=== PATIENT | female | born 1990 | race Caucasian/White ===

== ENCOUNTER → 2018-08-28 | Outpatient (REF) | payer OTHER ==
[2018-08-28 19:14] LABS: HEMATOCRIT 30.1 % (36.0-47.0); HEMOGLOBIN 8.8 g/dl (12.0-15.5); MEAN CORPUSCULAR HEMOGLOBIN 20.2 pg (27.0-33.0); MEAN CORPUSCULAR HGB CONC 29.2 g/dl (32.0-36.5); PLATELET COUNT, AUTOMATED 476 10^3/uL (150-450); RED BLOOD COUNT 4.36 10^6/uL (4.00-5.40); WHITE BLOOD COUNT 9.6 10^3/uL (4.0-10.0)
[2018-08-28 19:19] LABS: ALBUMIN 3.4 GM/DL (3.2-5.2); ALT/SGPT 23 U/L (12-78); BILIRUBIN,TOTAL 0.2 MG/DL (0.2-1.0); BLOOD UREA NITROGEN 8 MG/DL (7-18); CALCIUM LEVEL 8.9 MG/DL (8.5-10.1); CARBON DIOXIDE LEVEL 23 MEQ/L (21-32); CHLORIDE LEVEL 107 MEQ/L (98-107); CREATININE FOR GFR 0.54 MG/DL (0.55-1.30); GLOMERULAR FILTRATION RATE > 60.0 (>60); GLUCOSE, FASTING 71 MG/DL (70-100); POTASSIUM SERUM 4.2 MEQ/L (3.5-5.1); SODIUM LEVEL 138 MEQ/L (136-145); TOTAL PROTEIN 7.4 GM/DL (6.4-8.2)
[2018-09-02 14:57] LABS: FERRITIN 3 NG/ML (8-252); IRON (FE) 27 UG/DL (50-170); PERCENT SATURATION 4.6 % (13.2-45.0); TOTAL IRON BINDING CAPACITY 586 UG/DL (250-450)
== END ==
LOC: M SFHCPLAZ 15:18
PROVIDERS: ATTEND Nurse Practitioner Family
DX: Z32.01 Encounter for pregnancy test, result positive (principal)
CPT/HCPCS: 36415; 80053; 82728; 83550; 84439; 84443; 84702; 85027; G0463

== ENCOUNTER → 2018-09-20 | Outpatient (CLI) | payer OTHER ==
[~2018-09-20] MED LIST: PRENTAB9 PO
[2018-09-20 17:19] LABS: BASO % 0.5 % (0.0-1.0); EOS # 0.2 10^3/uL (0.0-0.50); EOS % 2.4 % (0.0-3.0); HEMOGLOBIN 8.8 g/dl (12.0-15.5); LYMPH # 1.9 10^3/uL (1.5-6.5); LYMPH % 22.4 % (24.0-44.0); MEAN CORPUSCULAR HEMOGLOBIN 19.4 pg (27.0-33.0); MEAN CORPUSCULAR HGB CONC 28.4 g/dl (32.0-36.5); MEAN CORPUSCULAR VOLUME 68.3 fl (80.0-96.0); MONO # 0.6 10^3/uL (0.0-0.8); MONO % 6.7 % (0.0-5.0); NEUTROPHILS # 5.7 10^3/uL (1.8-7.7); NEUTROPHILS % 67.8 % (36.0-66.0); PLATELET COUNT, AUTOMATED 444 10^3/uL (150-450); RED BLOOD COUNT 4.54 10^6/uL (4.00-5.40); WHITE BLOOD COUNT 8.4 10^3/uL (4.0-10.0)
[2018-09-23 11:12] LABS: HEPATITIS C VIRUS ABY INDEX 0.1 INDEX (<0.8); HIV 1&2 SCREEN CENTAUR NEGATIVE (NEGATIVE); RUBELLA IgG QUALITATIVE IMMUNE (IMMUNE)
== END ==
LOC: M LRY 10:38
PROVIDERS: ATTEND Advanced Practice Midwife
DX: Z3A.09 9 weeks gestation of pregnancy (principal)

== ENCOUNTER → 2018-09-26 | Outpatient (REF) | payer OTHER ==
[2018-09-26 20:22] LABS: CHLAMYDIA DNA AMPLIFICATION NEGATIVE (NEGATIVE); GC DNA AMPLIFICATION NEGATIVE (NEGATIVE)
== END ==
LOC: M LAB REF 17:25
PROVIDERS: ATTEND Advanced Practice Midwife
DX: Z34.82 Encounter for supervision of other normal pregnancy, second trimester (principal)

== ENCOUNTER → 2018-10-29 | Outpatient (REF) | payer OTHER | LOC: M LAB REF 12:46 | PROVIDERS: ATTEND Specialist | DX: Z34.82 Encounter for supervision of other normal pregnancy, second trimester (principal); Z3A.00 Weeks of gestation of pregnancy not specified ==

== ENCOUNTER → 2018-10-30 | Outpatient (CLI) | payer OTHER ==
--- NOTE | 2018-10-31 03:05 | REP ---
Clinical: Anatomical evaluation. Comparison: None . Findings: Examination demonstrates a single live intrauterine in breech presentation. motion is identified by technologist. Placenta is noted anterior and grade zero without evidence for placenta previa or abruption. Amniotic fluid volume is normal. Cervix measures no 3.1 cm in length and appears closed. No evidence for nuchal cord. Gestational age by current measurements 18 weeks 0 days with JABIER 04/02/2019 . FHR equals 144 beats per minute. BPD 4.2 cm 18 weeks 5 days HC 14.5 cm 17 weeks 5 days AC 12.8 cm 18 weeks 2 days FL 2.6 cm 18 weeks 0 days HL 2.5 cm 17 weeks 5 days HC/AC ratio 1.13 Estimated weight 226 grams ( 50th percentile). Anatomical assessment demonstrates normal structures including cranium, choroid plexus, cavum, cerebellum/posterior fossa, facial features, lungs, diaphragm, stomach, cord insertion/three-vessel cord, kidneys/bladder, spine, and extremities. Impression: Single live intrauterine in breech presentation demonstrating appropriate weight . Limited evaluation of the heart/ventricular outflow tracts may warrant reevaluation and follow-up. Electronically Signed by Scooby Robbins MD 10/31/2018 02:56 A
== END ==
LOC: M RAD 10:23
PROVIDERS: ATTEND Specialist
DX: Z34.82 Encounter for supervision of other normal pregnancy, second trimester (principal); Z3A.00 Weeks of gestation of pregnancy not specified

== ENCOUNTER → 2018-11-26 | Outpatient (REF) | payer OTHER | LOC: M LAB REF 13:12 | PROVIDERS: ATTEND Advanced Practice Midwife | DX: O99.012 Anemia complicating pregnancy, second trimester (principal); Z3A.00 Weeks of gestation of pregnancy not specified ==

== ENCOUNTER → 2018-11-28 | Outpatient (CLI) | payer OTHER ==
--- NOTE | 2018-11-29 04:32 | REP ---
Clinical: Anatomical evaluation. Comparison: 10/30/2018 . Findings: Examination demonstrates a single live intrauterine in breech presentation. motion is identified by technologist. Placenta is noted anterior and grade zero without evidence for placenta previa or abruption. Amniotic fluid volume is normal. Cervix measures 4.0 cm in length and appears closed. No evidence for nuchal cord. Gestational age by LMP 22 weeks 1 day with JABIER 09[birth year]14[birth year]1919 . Gestational age by current measurements 22 weeks 4 days with JABIER 03/30/2019 . FHR equals 147 beats per minute. Estimated weight 508 grams ( 55th percentile). Anatomical assessment demonstrates normal structures including cranium, choroid plexus, cavum, cerebellum/posterior fossa, lungs, diaphragm, stomach, cord insertion/three-vessel cord, bladder, spine, and extremities. Impression: Single live intrauterine in breech presentation demonstrating appropriate interval growth. Limited evaluation of the heart again noted. Remainder of the anatomical assessment is within normal limits. Electronically Signed by Scooby Robbins MD 11/29/2018 04:24 A
== END ==
LOC: M RAD 16:47
PROVIDERS: ATTEND Advanced Practice Midwife
DX: O99.012 Anemia complicating pregnancy, second trimester (principal); D64.9 Anemia, unspecified; Z3A.22 22 weeks gestation of pregnancy; O32.1XX0 Maternal care for breech presentation, not applicable or unspecified

== ENCOUNTER 2018-12-20 15:40 | Outpatient (CLI) | payer OTHER ==
[~2018-12-20] VITALS: Ht 154.9 cm; Wt 64.0 kg
[2018-12-20 16:03] VITALS: BP 132/77
[2018-12-20] MEDS ORDERED: PRENTAB9 PO (16:07)
[2018-12-20 17:15] VITALS: BP 126/73
--- NOTE | 2018-12-20 17:24 | IPNPDOC ---
Text Note Date of Service The patient was seen on 12/20/18. NOTE Outpatient 28yo G1 JABIER 03/29/2019. Presents @ 25w1d with complaints of general malaise, sore throat and decreased FM over the past 2 days. Denies LOF or bleeding. VSS, afebrile, normotensive NST reassuring for gestation Discussed anterior placental relation to perception of movement Enc regular small protein rich meals/snacks and increased fluids. If not feeling better this weekend, go to urgent care or primary. Keep next appt VS,Fishbone, I+O VS, Fishbone, I+O Vital Signs Date Time Temp Pulse Resp B/P (MAP) Pulse Ox O2 Delivery O2 Flow Rate FiO2 12/20/18 16:03 114 18 132/77 (95) Susanna Powell CNM Dec 20, 2018 17:24
== END 2018-12-20 17:30 | disposition home or self-care (01) ==
LOC: M LDO 15:40
PROVIDERS: ATTEND Advanced Practice Midwife
DX: O36.8120 Decreased fetal movements, second trimester, not applicable or unspecified (principal); Z3A.25 25 weeks gestation of pregnancy
CPT/HCPCS: G0378; G0463

== ENCOUNTER → 2018-12-31 | Outpatient (CLI) | payer OTHER ==
--- NOTE | 2018-12-31 12:02 | REP ---
OB ULTRASOUND: Real-time sonographic evaluation of gravid uterus performed. There is a single living intrauterine gestation. The estimated gestational age is 26 weeks 6 days. EDC 04/02/2019. Today's measurements indicate appropriate growth. BPD 70 mm = 28 weeks 1 day, 76th percentile HC 253 mm = 27 weeks 3 days, 62nd percentile AC 217 mm = 26 weeks 1 day, 35th percentile Femur length 49 mm = 26 weeks 2 days, 37th percentile HC/AC ratio 1.16, within normal range. Estimated weight 940 grams, 32nd percentile. Cervix is closed and measures 3.2 cm in length. heart rate 150 beats per minute. SEEN/GROSSLY UNREMARKABLE Lateral ventricles Yes Posterior fossa No (previously seen) Upper lip Yes Four-chamber heart Yes LVOT Yes RVOT Yes Stomach Yes Cord insertion No (previously seen) Three vessel cord Yes Kidneys Yes Bladder Yes Spine No (previously seen) position: Vertex. Placenta: Anterior and grade 0 with no previa or abruption. Amniotic fluid: Within normal limits. Electronically Signed by Luther Almanza MD 01/01/2019 10:31 A
== END ==
LOC: M RAD 10:47
PROVIDERS: ATTEND Advanced Practice Midwife
DX: Z34.82 Encounter for supervision of other normal pregnancy, second trimester (principal); Z3A.26 26 weeks gestation of pregnancy

== ENCOUNTER → 2019-01-31 | Outpatient (CLI) | payer OTHER ==
[2019-01-31 14:18] LABS: HEMATOCRIT 28.3 % (36.0-47.0); HEMOGLOBIN 7.6 g/dl (12.0-15.5); MEAN CORPUSCULAR HEMOGLOBIN 19.2 pg (27.0-33.0); MEAN CORPUSCULAR HGB CONC 26.9 g/dl (32.0-36.5); MEAN CORPUSCULAR VOLUME 71.5 fl (80.0-96.0); PLATELET COUNT, AUTOMATED 394 10^3/uL (150-450); RED BLOOD COUNT 3.96 10^6/uL (4.00-5.40); WHITE BLOOD COUNT 9.8 10^3/uL (4.0-10.0)
== END ==
LOC: M PLALAB 08:56
PROVIDERS: ATTEND Advanced Practice Midwife
DX: Z34.03 Encounter for supervision of normal first pregnancy, third trimester (principal)

== ENCOUNTER → 2019-02-10 | Outpatient (CLI) | payer OTHER ==
[2019-02-10 19:10] LABS: ALBUMIN 2.6 GM/DL (3.2-5.2); ALT/SGPT 16 U/L (12-78); BILIRUBIN,TOTAL 0.5 MG/DL (0.2-1.0); BLOOD UREA NITROGEN 7 MG/DL (7-18); CALCIUM LEVEL 8.7 MG/DL (8.5-10.1); CARBON DIOXIDE LEVEL 21 MEQ/L (21-32); CHLORIDE LEVEL 107 MEQ/L (98-107); CREATININE FOR GFR 0.56 MG/DL (0.55-1.30); FERRITIN 5 NG/ML (8-252); GLOMERULAR FILTRATION RATE > 60.0 (>60); GLUCOSE, FASTING 68 MG/DL (70-100); IRON (FE) 17 UG/DL (50-170); PERCENT SATURATION 1.9 % (13.2-45.0); POTASSIUM SERUM 3.4 MEQ/L (3.5-5.1); SODIUM LEVEL 139 MEQ/L (136-145); TOTAL IRON BINDING CAPACITY 903 UG/DL (250-450); TOTAL PROTEIN 6.8 GM/DL (6.4-8.2)
[2019-02-14 14:07] LABS: HEMOGLOBIN A 98.1 % (96.4-98.8); HEMOGLOBIN A2 1.9 % (1.8-3.2); HGB SOLUBILITY Negative (Negative); TRANSFERRIN 716 mg/dL (200-370)
== END ==
LOC: M PLALAB 13:08
PROVIDERS: ATTEND Advanced Practice Midwife
DX: O99.013 Anemia complicating pregnancy, third trimester (principal)

== ENCOUNTER 2019-02-20 10:22 | Outpatient (CLI) | payer OTHER ==
[~2019-02-20] VITALS: Ht 154.9 cm; Wt 65.5 kg
[2019-02-20] VITALS (7 sets, daily range): BP systolic 111–132; BP diastolic 57–76
[2019-02-20] MEDS ORDERED: IRON SUCROSE 500 MG in NS 250 ML OVER 4 HRS IV ONE (11:00)
== END 2019-02-20 16:20 | disposition home or self-care (01) ==
LOC: M INFU 10:22
PROVIDERS: ATTEND Advanced Practice Midwife
DX: D64.9 Anemia, unspecified (principal); Z88.0 Allergy status to penicillin
CPT/HCPCS: 96365; 96366; J1756

== ENCOUNTER → 2019-03-07 | Outpatient (REF) | payer OTHER | LOC: M SFHCWAGY 12:51 | PROVIDERS: ATTEND Advanced Practice Midwife | DX: Z36.85 Encounter for antenatal screening for Streptococcus B (principal); O99.013 Anemia complicating pregnancy, third trimester; Z3A.00 Weeks of gestation of pregnancy not specified ==

== ENCOUNTER → 2019-03-11 | Outpatient (CLI) | payer OTHER ==
[2019-03-11 13:05] LABS: HEMATOCRIT 33.4 % (36.0-47.0); HEMOGLOBIN 9.2 g/dl (12.0-15.5); MEAN CORPUSCULAR HEMOGLOBIN 21.3 pg (27.0-33.0); MEAN CORPUSCULAR HGB CONC 27.5 g/dl (32.0-36.5); MEAN CORPUSCULAR VOLUME 77.3 fl (80.0-96.0); PLATELET COUNT, AUTOMATED 323 10^3/uL (150-450); RED BLOOD COUNT 4.32 10^6/uL (4.00-5.40); WHITE BLOOD COUNT 6.5 10^3/uL (4.0-10.0)
== END ==
LOC: M PLALAB 11:21
PROVIDERS: ATTEND Advanced Practice Midwife
DX: O99.013 Anemia complicating pregnancy, third trimester (principal)

== ENCOUNTER 2019-03-25 13:51 | Inpatient (IN) | payer OTHER ==
[2019-03-25] VITALS (12 sets, daily range): BP systolic 120–151; BP diastolic 69–93
[~2019-03-25] VITALS: Ht 154.9 cm; Wt 70.9 kg
[~2019-03-25 13:51] MED LIST changes: +FERROUS SULFATE 325MG TAB PO SCH; +PRENATAL VITAMINS CHEWABLE TABLET PO SCH
[2019-03-25 15:56] LABS: HEMATOCRIT 32.5 % (36.0-47.0); HEMOGLOBIN 9.3 g/dl (12.0-15.5); MEAN CORPUSCULAR HEMOGLOBIN 21.8 pg (27.0-33.0); MEAN CORPUSCULAR HGB CONC 28.6 g/dl (32.0-36.5); MEAN CORPUSCULAR VOLUME 76.1 fl (80.0-96.0); PLATELET COUNT, AUTOMATED 258 10^3/uL (150-450); RED BLOOD COUNT 4.27 10^6/uL (4.00-5.40); WHITE BLOOD COUNT 8.2 10^3/uL (4.0-10.0)
[2019-03-25 16:21] LABS: CREATININE,RANDOM URINE 80.3 MG/DL; TOTAL PROTEIN,RANDOM URINE 10.5 MG/DL (0.0-12.0)
[2019-03-25 16:22] LABS: ALT/SGPT 18 U/L (12-78); BILIRUBIN,TOTAL 0.2 MG/DL (0.2-1.0); CREATININE FOR GFR 0.61 MG/DL (0.55-1.30); GLOMERULAR FILTRATION RATE > 60.0 (>60); LDH LACTATE DEHYDROGENASE 165 U/L (84-246); URIC ACID 4.3 MG/DL (2.6-6.0)
[2019-03-25] MEDS: miSOPROStol 50 MCG 1/2 TAB (S0191) PO SCH ×2 (18:43→22:15)
--- NOTE | 2019-03-25 19:20 | HPEPDOC ---
Obstetrical History & Physical General Date of Admission Mar 25, 2019 at 13:51 History of Present Illness 28-year-old 1 at 39 weeks 0 days gestational age, presents to labor and delivery for induction of labor for gestational hypertension. She presented this afternoon for scheduled OB appointment at which time she was noted to have repetitive elevated blood pressures. She was sent over to labor and delivery for further evaluation where she continued to have intermittent elevated blood pressures area. She reports active movements. Denies any vaginal bleeding or leakage fluid. Chief Complaint: Gestational Hypertension Information Provided By: Patient Age: 28 : 1 Livin Care Care: Good Care Dating Final EDC: Mar 29, 2019 Final EDC by: LMP LMP: June 25, 2018 EGA at Admission: 39 Past Medical History Past Obstetrical History : Past Obstetrical History: Primgravida Past Medical History Surgical History: Denies/None Family History Significant Family History: No pertinent family hx, Diabetes, Hypertension Social History Marital Status: Psychosocial History: No pertinent psych hx * Smoker: non-smoker Alcohol: Denies Drugs: denies Allergies Coded Allergies: amoxicillin (Verified Allergy, Intermediate, hives, 12/20/18) Medications Scheduled No.137/Iron/Folic Acd ( Vitamin Tablet) 1 Each Tablet, 1 TAB PO DAILY Physical Examination Physical Examination GENERAL: Alert and oriented times three. BREAST: . ABDOMEN: Gravid and non-tender to touch. FETUS: Is vertex (VTX) by sterile vaginal examination (SVE), fetus is vertex (VTX) by Alberto. HEART RATE: Regular rate and rhythm. LUNGS: Clear to auscultation (CTA). EXTREMITIES: No edema. No clonus. Deep tendon reflexes (DTRs) + . Vital Signs/I&O Vital Signs Date Time Temp Pulse Resp B/P (MAP) Pulse Ox O2 Delivery O2 Flow Rate FiO2 03/25/19 18:43 93 18 147/85 (105) 03/25/19 14:06 98.5 Laboratory Data [facility] Laboratory Tests 2 03/25/19 13:58: Serology Scanned Report Hepatitis B Testing 03/25/19 15:43: Nucleated Red Blood Cells % (auto) 0.0, Urine Random Creatinine 80.3, Urine Random Total Protein 10.5, Glomerular Filtration Rate > 60.0, Uric Acid 4.3, Total Bilirubin 0.2, Aspartate Amino Transf (AST/SGOT) 12, Alanine Aminotransferase (ALT/SGPT) 18, Lactate Dehydrogenase 165 CBC/BMP Laboratory Tests 03/25/19 15:43 Pertinent Laboratoy Data Blood Type: O+ RBC Antibody Screen: Negative HIV: Negative Hepatitis B: Negative Hepatitis C: Negative Rapid Plasma Reagin: Nonreactive Rubella: Immune Group B Streptococcus: Negative Anatomy Ultrasound Placenta Location: Anterior Normal Anatomy: Yes Placenta Previa: No Vaginal Examination Dilation: 2cm Effacement: 50% Station: -2 Assessment Variability: Moderate Accelerations: Positive Tocometer Contractions: No Assessment/Plan Assessment 1. 28-year-old 1 at 39 weeks 0 days estimate gestational age here with gestational hypertension. 2. Reassuring status Plan Admit and orient. [employer] Teacher and consent. Diet: Regular. Group B Streptococcus (GBS) negative. Labs and intravenous (IV) per unit protocol. Counseled on Pitocin and induction of labor (IOL). Anticipate normal spontaneous delivery (). C-S as appropriate. Labor and Delivery Counseling Patient has been thoroughly counseled regards to her diagnoses. Discussed disease progression as well as management during and after labor. Discussed recommendation for induction of labor at 39 weeks, gestational hypertension. She is also been verbally consented for emergency surgery, blood products anesthesia desires to proceed with admission. Plans to initiate her induction labor with 50 g of oral misoprostol JOCELYNN CORTES MD. Mar 25, 2019 19:20
[2019-03-25] MEDS: PRENATAL VITAMINS CHEWABLE TABLET PO SCH (20:57)
[2019-03-25] MEDS: FERROUS SULFATE 325MG TAB PO SCH (20:58)
[2019-03-26] VITALS (36 sets, daily range): BP systolic 126–177; BP diastolic 63–99
[2019-03-26] MEDS ORDERED: PROMETHAZINE INJ 25 MG/ML VIAL (J2550) IV PRN (01:15)
[2019-03-26] MEDS ORDERED: BUTORPHANOL 2 MG/ML INJ (J0595) IV ONE (01:15)
[2019-03-26] MEDS: miSOPROStol 50 MCG 1/2 TAB (S0191) PO SCH (02:47)
[2019-03-26] MEDS: LR 1,000 ML IV SCH ×2 (05:55→15:40)
[2019-03-26] MEDS ORDERED: LR 1,000 ML IV SCH (08:50)
[2019-03-26] MEDS: OXYTOCIN DRIP 30 UNITS in IV 1 EA IV SCH ×2 (09:09→23:36)
[2019-03-26 11:07] LABS: HEMATOCRIT 30.6 % (36.0-47.0); HEMOGLOBIN 9.4 g/dl (12.0-15.5); MEAN CORPUSCULAR HEMOGLOBIN 23.2 pg (27.0-33.0); MEAN CORPUSCULAR HGB CONC 30.7 g/dl (32.0-36.5); MEAN CORPUSCULAR VOLUME 75.4 fl (80.0-96.0); PLATELET COUNT, AUTOMATED 246 10^3/uL (150-450); RED BLOOD COUNT 4.06 10^6/uL (4.00-5.40); WHITE BLOOD COUNT 8.2 10^3/uL (4.0-10.0)
[2019-03-26 11:26] LABS: ALT/SGPT 16 U/L (12-78); BILIRUBIN,TOTAL 0.3 MG/DL (0.2-1.0); GLOMERULAR FILTRATION RATE > 60.0 (>60); LDH LACTATE DEHYDROGENASE 240 U/L (84-246); URIC ACID 4.2 MG/DL (2.6-6.0)
[2019-03-26] MEDS ORDERED: FENTANYL 2MCG/ML ROPIVACAINE 0.2% IN 0.9% NACL 100ML IVBAG As Ordered ONE ×2 (11:56→20:47)
[2019-03-26] MEDS ORDERED: REFRIGERATOR IV KEYS XX PRN (12:55)
[2019-03-26] MEDS ORDERED: ePHEDrine SULFATE 25 MG/5 ML(5MG/ML) SYRINGE IV PRN (12:55)
[2019-03-26] MEDS ORDERED: EPIDURAL/PCA KEYS XX PRN (12:55)
[2019-03-26] MEDS ORDERED: NALOXONE INJ 0.4 MG/1 ML VIAL (J2310) IV PRN (12:55)
[2019-03-26] MEDS ORDERED: diphenhydrAMINE INJ 50MG/ML VIAL (J1200) IV PRN (12:55)
[2019-03-26] MEDS ORDERED: LACTATED RINGER'S 1000 ML IV PRN (12:55)
[2019-03-26] MEDS ORDERED: ONDANSETRON 4MG/2ML VIAL (J2405) IV PRN (12:55)
[2019-03-26] MEDS ORDERED: EPIDURAL COMMENT XX SCH (12:55)
[2019-03-26] MEDS ORDERED: FENTANYL/ROPIVACAINE/NACL BAG 100 ML EPIDURAL SCH (12:55)
[2019-03-27] MEDS ORDERED: OXYTOCIN DRIP 30 UNITS in IV 1 EA IV SCH (00:27)
[2019-03-27] MEDS ORDERED: MEASLES,MUMPS,RUBELLA VACCINE INJ (MMR-II) (90707) SC SCH (00:30)
[2019-03-27] MEDS ORDERED: DIBUCAINE 1% OINTMENT 30GM TOP PRN (00:30)
[2019-03-27] MEDS ORDERED: ACETAMINOPHEN TAB 650MG DOSE (2X325MG) PO PRN (00:30)
[2019-03-27] MEDS ORDERED: RHOGAM 300 MCG (1500 IU) INJ (J2790) IM SCH (00:30)
[2019-03-27] MEDS ORDERED: DOCUSATE SODIUM 100 MG CAP PO PRN (00:30)
[2019-03-27] MEDS ORDERED: IBUPROFEN 600 MG TAB PO PRN (00:30)
[2019-03-27] MEDS: IBUPROFEN 800 MG TAB PO PRN ×2 (00:42→16:09)
[2019-03-27 01:00] VITALS: BP 165/93
[2019-03-27 01:15] VITALS: BP 146/80
[2019-03-27 05:33] VITALS: BP 162/80
[2019-03-27 05:48] VITALS: BP 140/77
--- NOTE | 2019-03-27 06:04 | DN ---
DATE OF DELIVERY: HISTORY: Sherron is a 28-year-old 1, para 1-0-0-1 now, she was admitted to labor and delivery for gestational hypertension induction of labor. Misoprostol and IV Pitocin was utilized and labor ensued. She had spontaneous rupture of membranes with a small amount of clear fluid at 1830. She reached complete dilation at 2105. She pushed to a normal spontaneous vaginal delivery of a live female infant in occiput anterior (OA) position with restitution to right occiput transverse (ROT) position at 2220. There was no nuchal cord. The shoulders delivered spontaneously and the corpus immediately followed. The female was placed on the maternal abdomen crying and active. Mouth and nares were bulb suctioned. The cord was clamped once pulsations ceased and cut by the father of the baby under my direction. Uterine hemostasis was achieved with IV Pitocin rapid infusion and uterine fundal massage. Estimated blood loss 300 mL. Perineum and vagina inspected noted have a right labial laceration. The laceration was repaired with 3-0 Rapide. female weighed 6 pounds 7 ounces, 2930 grams, 9 and 9. The family have named their daughter Cheri and the mother is going to breastfeed. At the close of delivery lap counts, instrument counts and needle counts were correct and verified.
[2019-03-27] MEDS: ACETAMINOPHEN 500 MG TAB PO PRN ×2 (08:24→21:26)
[2019-03-27 10:00] VITALS: BP 126/64
[2019-03-27 18:03] VITALS: BP 143/83
[2019-03-27] MEDS: PRENATAL VITAMINS CHEWABLE TABLET PO SCH ×2 (21:25→21:35)
[2019-03-27] MEDS: FERROUS SULFATE 325MG TAB PO SCH ×2 (21:25→21:35)
[2019-03-28] MEDS: IBUPROFEN 800 MG TAB PO PRN (02:48)
[2019-03-28 06:28] VITALS: BP 139/83
[2019-03-28] MEDS ORDERED: IBUP80TA PO (07:04)
[2019-03-28] MEDS ORDERED: ACET-683 PO (07:04)
== END 2019-03-28 13:50 | disposition home or self-care (01) | DRG 807 ==
LOC: M LDI 13:51 → M OBS 03-27 00:08
PROVIDERS: ADMIT Obstetrics & Gynecology; ATTEND Obstetrics & Gynecology
PROC: 10E0XZZ Delivery of Products of Conception, External Approach (ICD-10-PCS; principal; 2019-03-26)
PROC: 0HQ9XZZ Repair Perineum Skin, External Approach (ICD-10-PCS; 2019-03-26)
PROC: 3E033VJ Introduction of Other Hormone into Peripheral Vein, Percutaneous Approach (ICD-10-PCS; 2019-03-26)
DX: O24.429 Gestational diabetes mellitus in childbirth, unspecified control (principal); Z37.0 Single live birth; Z3A.39 39 weeks gestation of pregnancy; Z88.0 Allergy status to penicillin; O70.0 First degree perineal laceration during delivery

== ENCOUNTER → 2020-04-12 | Outpatient (CLI) | payer SELFPAY ==
[~2020-04-12] MED LIST changes: +ACET-683 PO; -FERROUS SULFATE 325MG TAB PO SCH; +IBUP80TA PO; -PRENATAL VITAMINS CHEWABLE TABLET PO SCH
== END ==
LOC: M LABSMTC 14:21
PROVIDERS: ATTEND Pediatrics
DX: Z11.52 Encounter for screening for COVID-19 (principal)

== ENCOUNTER → 2020-06-21 | Outpatient (REF) | payer OTHER | LOC: M SFHCWAGY 09:50 | PROVIDERS: ATTEND Nurse Practitioner Women's Health | DX: Z12.4 Encounter for screening for malignant neoplasm of cervix (principal); R87.612 Low grade squamous intraepithelial lesion on cytologic smear of cervix (LGSIL) ==

== ENCOUNTER → 2020-07-26 | Outpatient (REF) | payer OTHER | LOC: M SFHCWAGY 13:04 | PROVIDERS: ATTEND Nurse Practitioner Women's Health | DX: R87.612 Low grade squamous intraepithelial lesion on cytologic smear of cervix (LGSIL) (principal) ==